=== PATIENT | female | born 1970 | race Caucasian/White ===

== ENCOUNTER 2018-08-08 07:19 | Outpatient (CLI) | payer OTHER ==
[2018-08-08 07:59] LABS: URINE SOURCE RANDOM
[2018-08-08 08:25] LABS: % EOSINOPHILS 2.5 % (0.0-5.0); EOSINOPHILE ABSOLUTE 0.1 Th/cmm (0.1-0.4); HEMOGLOBIN 13.7 gm/dL (12-16); MEAN CORPUSCULAR HEMOGLOBIN 29.4 pg (27.0-31.0); MEAN PLATELET VOLUME 8.4 fl; NEUTROPHILE ABSOLUTE 2.4 Th/cmm (1.8-8.0); RED CELL DISTRIBUTION WIDTH 12.4 % (11.5-20.0)
[2018-08-08 08:28] LABS: URINE BILIRUBIN NEGATIVE (NEGATIVE); URINE BLOOD NEGATIVE (NEGATIVE); URINE GLUCOSE (UA) NEGATIVE (NEGATIVE); URINE KETONE NEGATIVE (NEGATIVE); URINE LEUKOCYTE ESTERASE NEGATIVE (NEGATIVE); URINE NITRATE NEGATIVE (NEGATIVE); URINE PH 5.5 (4.6 - 8.0); URINE PROTEIN NEGATIVE (NEGATIVE); URINE UROBILINOGEN 0.2 E.U./dL (0.2 - 1.0)
[2018-08-08 08:33] LABS: URINE CLARITY CLEAR (CLEAR); URINE COLOR YELLOW; URINE MICROSCOPIC INDICATED? YES
[2018-08-08 08:34] LABS: % BASOPHILS 0.6 % (0.0-2.0); % LYMPHOCYTES 29.1 % (20.0-50.0); % MONOCYTES 6.3 % (2.0-10.0); % NEUTROPHILS 61.5 % (40.0-80.0); HEMATOCRIT 41.4 % (41.0-60); LYMPHOCYTE ABSOLUTE 1.2 Th/cmm (1.5-3.0); MEAN CELL VOLUME 88.8 fl (81-100); MEAN CORPUSCULAR HGB CONC 33.1 pg (28.0-36.0); MONOCYTE ABSOLUTE 0.3 Th/cmm (0.3-1.0); PLATELET COUNT 190 Th/cmm (150-400); RED BLOOD COUNT 4.66 Mil/cmm (3.80-5.10)
[2018-08-08 08:42] LABS: ALB/GLOB RATIO 1.9 (1.0-1.8); ALBUMIN 4.4 gm/dL (3.7-5.3); ALKALINE PHOSPHATASE 52 U/L (34-104); BILIRUBIN,TOTAL 0.5 mg/dL (0.3-1.0); BUN - UREA NITROGEN 22 mg/dL (7-25); CALCIUM SERUM 9.6 mg/dL (8.6-10.3); CARBON DIOXIDE 29.1 mEq/L (21.0-31.0); CHLORIDE 107 mEq/L (98-107); CHOLESTEROL 167 mg/dL (<200); CREATININE - SERUM 0.7 mg/dL (0.6-1.2); GFR AFRICAN-AMERICAN > 60.0 ml/min (>90); GFR NON AFRICAN-AMERICAN > 60.0 ml/min; GLUCOSE 92 mg/dL (70-105); HDL -HIGH DENSITY LIPOPROTEIN 62 mg/dL (23-92); POTASSIUM SERUM 4.1 mEq/L (3.5-5.1); SGOT 22 U/L (13-39); SGPT/ALT 24 U/L (7-52); SODIUM SERUM 143 mEq/L (136-145); TOTAL PROTEIN,SERUM 6.7 gm/dL (6.0-8.3); TRIGLYCERIDES 81 mg/dL (<150)
[2018-08-08 08:42] LABS: URINE BACTERIA FEW /hpf (NONE SEEN); URINE EPITHELIAL CELLS FEW /lpf (FEW); URINE RBC NONE SEEN /hpf (0-5); URINE WBC 0-2 /hpf (0-5)
[2018-08-11 12:06] LABS: PROGESTERONE <0.1 ng/mL
== END 2018-08-08 07:55 | disposition home or self-care (01) ==
LOC: LAB 07:19
DX: Z00.00 Encounter for general adult medical examination without abnormal findings (principal); Z12.11 Encounter for screening for malignant neoplasm of colon; N95.1 Menopausal and female climacteric states
CPT/HCPCS: 36415-UA; 80053-TC; 80061-TC; 81001-TC; 82672-90; 83001-90; 83002-90; 83036-90; 84144-90; 84439-90; 84443-TC; 85025-TC

== ENCOUNTER 2018-11-07 07:00 | Emergency (ER) | payer OTHER ==
--- NOTE | 2018-11-07 07:36 | ED Physician Chart ---
ED Chief Complaint/HPI - Patient Information Date Seen:: 11/07/18 Time Seen:: 07:20 Chief Complaint:: left cheek pain History of Present Illness:: Patient developed pain left cheek yesterday. Patient's had head congestion without nasal discharge for the last 4 days. No fever. Patient had one prior sinus infection "years ago." Allergies:: Allergies Allergy/AdvReac Type Severity Reaction Status Date / Time cefaclor [From [facility]] Allergy Verified 11/07/18 07:16 Vitals:: Vital Signs - 8 hr 11/07/18 11/07/18 07:17 07:28 HR 80 80 RR 18 18 BP 126/76 126/76 O2 Sat % 98 98 Historian:: Patient Review:: Nurse's Note Reviewed ED Review of Systems - Review of Systems General/Constitutional: No fever, No chills, No weight loss, No weakness, No diaphoresis, No edema, No loss of appetite Skin: No skin lesions, No rash, No bruising Head: Other (left cheek pain) Eyes: No loss of vision, No pain, No diplopia ENT: No earache, No nasal drainage, No sore throat, No tinnitus Neck: No neck pain, No swelling, No thyromegaly, No stiffness, No mass noted Cardio Vascular: No chest pain, No palpitations, No PND, No orthopnea, No edema Pulmonary: No SOB, No cough, No sputum, No wheezing GI: No nausea, No vomiting, No diarrhea, No pain, No melena, No hematochezia, No constipation, No hematemesis G/U: No dysuria, No frequency, No hematuria Musculoskeletal: No bone or joint pain, No back pain, No muscle pain Endocrine: No polyuria, No polydipsia Psychiatric: No prior psych history, No depression, No anxiety, No suicidal ideation Hematopoietic: No bruising, No lymphadenopathy Allergic/Immuno: No urticaria, No angioedema Neurological: No syncope, No focal symptoms, No weakness, No paresthesia, No headache, No seizure, No dizziness, No confusion, No vertigo ED Past Medical History - Past Medical History Obtainable: Yes Past Medical History: No significant medical hx Family History: HTN, Other (mother had bilateral breast cancer; father had atrial fibrillation and hypertension) Social History: Smoker, Alcohol, Other (smokes 3 cigarettes a day and occasionally drinks alcohol) Surgical History: other (prostatic mentation and tubal ligation) Psychiatricy History: None Medication: None Family Medical History - Family Member Mother Hx Family Cancer: Yes (breast) ED Physical Exam - Physical Examination General/Constitutional: Awake, Well-developed, well-nourished, Alert, No distress, GCS 15, Non-toxic appearing, Ambulatory Head: Atraumatic Other Head comments:: Tenderness over the left maxillary sinus Eyes: Lids, conjuctiva normal, PERRL, EOMI Skin: Nl inspection, No rash, No skin lesions, No ecchymosis, Well hydrated, No lymphadenopathy ENMT: External ears, nose nl, Nasal exam nl, Lips, teeth, gums nl Neck: Nontender, Full ROM w/o pain, No JVD, No nuchal rigidity, No bruit, No mass, No stridor Respiratory: Nl effort/Exclusion, Clear to Auscultation, No Wheeze/Rhonchi/Rales Cardio Vascular: RRR, No murmur, gallop, rubs, NL S1 S2 GI: No tenderness/rebounding/guarding, No organomegaly, No hernia, Normal BS's, Nondistended, No mass/bruits, No McBurney tenderness : No CVA tenderness Extremities: No tenderness or effusion, Full ROM, normal strength in all extremities, No edema, Normal digits & nails Neuro/Psych: Alert/oriented, DTR's symmetric, Normal sensory exam, Normal motor strength, Judgement/insight normal, Mood normal, Normal gait, No focal deficits Misc: Normal back, No paraspinal tenderness ED Septic Shock - . Is Septic Shock (SBP<90, OR Lactate>4 mmol\\L) present?: No - <6hrs of presentation: Vital Signs: Vital Signs - 8 hr 11/07/18 11/07/18 07:17 07:28 HR 80 80 RR 18 18 BP 126/76 126/76 O2 Sat % 98 98 ED Reassessment (Disposition) - Reassessment Reassessment Condition:: Unchanged - Diagnosis Diagnosis:: Left maxillary sinusitis - Aftercare/Follow up Instructions Aftercare/Follow-Up Instructions:: Refer to Discharge Instructions Medication Prescribed:: Amoxicillin 500 mg 3 times a day for 2 weeks - Patient Disposition Discharge/Transfer:: Home Condition at Disposition:: Stable, Unchanged
== END 2018-11-07 07:45 | disposition home or self-care (01) ==
LOC: ER 07:00 → EEVIPCON 07:00 → ER 07:45
DX: J32.0 Chronic maxillary sinusitis (principal); I10 Essential (primary) hypertension; F17.210 Nicotine dependence, cigarettes, uncomplicated; Z88.0 Allergy status to penicillin
CPT/HCPCS: Z7502; Z7610

== ENCOUNTER 2018-12-26 09:14 | Outpatient (CLI) | payer OTHER ==
--- NOTE | 2018-12-26 10:02 | Diagnostic Imaging Report ---
CT sinus without IV contrast History: Chronic sinusitis. Status post 3 weeks of antibiotic treatment with no pain relief Technique: Axial images of the sinuses were obtained without IV contrast. Reconstructions were made. Total DLP 115, CTD I 17 Findings: There is minimal mucosal thickening of paranasal sinuses. There is slight leftward deviated nasal septum. No evidence of acute or chronic sinusitis. The bilateral paranasal sinuses demonstrate minimal mucosal thickening. There is minimal mucosal thickening Of the right maxillary ostia origin. No evidence of an acute fracture. The bilateral orbital floors are intact. The globes and intraconal compartments are intact. The zygomatic arches are intact. No significant focal soft tissue swelling. Dental hardware is noted. IMPRESSION: No evidence of acute or chronic sinusitis. There is minimal mucosal thickening of the paranasal sinuses. Slightly leftward deviated nasal septum.
== END 2018-12-26 10:00 | disposition home or self-care (01) ==
LOC: RAD 09:14
DX: J34.2 Deviated nasal septum (principal); J34.89 Other specified disorders of nose and nasal sinuses
CPT/HCPCS: 70486-TC